=== PATIENT | male | born 1985 | race Caucasian/White ===

== ENCOUNTER 2016-12-07 16:58 | Emergency (ER) | payer MEDICAID, OTHER ==
[~2016-12-07 16:58] MED LIST: CYCL-36 PO; DICL50 PO; HYDR-3533 PO
[2016-12-07 17:16] VITALS: BP 174/110; PULSE 91; RESP 18; TEMP 98.1; O2SAT 100
--- NOTE | 2016-12-07 17:41 | PD ---
HPI Chief Complaint: OD/ Ingestion Time Seen by Provider: 17:23 Travel History International Travel<30 days: No Contact w/Intl Traveler<30days: No Traveled to known affect area: No History of Present Illness HPI This patient snorted a combination of cocaine and heroin. He then drowsy and slumped over face down on the bed. His daughter found him like that and called 911. Paramedics gave him Narcan and brought him in. At this time he complains of some drowsiness but symptoms severity is mild. He denies suicidal ideation or intentional overdose. Symptoms are improved with Narcan. Duration 1 hour. No injury. PFSH Past Medical History Arthritis: Yes (OSTEO IN HANDS) Bipolar Disorder: Yes Anxiety: Yes Depression: Yes Diabetes: No Diminished Hearing: No Gout: Yes (FLARE UPS Q 3-6 MONTHS) Hypertension: Yes Immune Disorder: No Musculoskeletal: Yes (PT HAS GOUT) Neurologic: No Psychiatric: Yes (CURRENTLY SEES DR MALLORY BUT DOES NOT KNOW DIAGNOSIS) Reproductive: No Respiratory: No ?: Not Past Surgical History Other Surgery: Yes (HERNIA WHEN 2 YO) Social History Alcohol Use: Yes (OCCASIONALLY, ONCE PER MONTH) Tobacco Use: Yes (1/2 - 1 PPD) Substance Use: Yes (MARIJUANA) Allergies-Medications (Allergen,Severity, Reaction): Coded Allergies: Gabapentin (Unverified Allergy, Severe, 12/07/16) Reported Meds & Prescriptions Reported Meds & Active Scripts Active Review of Systems General / Constitutional: No: Fever Eyes: No: Visual changes HENT: No: Headaches Cardiovascular: No: Chest Pain or Discomfort Respiratory: No: Shortness of Breath Gastrointestinal: No: Abdominal Pain Genitourinary: No: Dysuria Musculoskeletal: No: Pain Skin: No Rash Neurologic: Positive: Change in Mentation, No: Weakness Psychiatric: Positive: Substance Abuse, No: Depression Endocrine: No: Polydipsia Hematologic/Lymphatic: No: Easy Bruising Physical Exam Narrative GENERAL: Well-nourished, well-developed patient in no apparent distress. SKIN: Focused skin assessment reveals no rash and nodules. Skin is Warm and dry. HEAD: Atraumatic. Normocephalic. EYES: Pupils equal and round. No scleral icterus. No injection or drainage. ENT: No nasal bleeding or discharge. Mucous membranes pink and moist. NECK: Trachea midline. No JVD. CARDIOVASCULAR: Regular rate and rhythm. No murmur appreciated. RESPIRATORY: No accessory muscle use. Clear to auscultation. Breath sounds equal bilaterally. GASTROINTESTINAL: Abdomen soft, non-tender, nondistended. Hepatic and splenic margins not palpable. MUSCULOSKELETAL: No obvious deformities. No clubbing. No cyanosis. No edema. NEUROLOGICAL: Awake and alert. No obvious cranial nerve deficits. Motor grossly within normal limits. Normal speech. PSYCHIATRIC: Appropriate mood and affect; insight and judgment poor. Data Data Last Documented VS Vital Signs Date Time Temp Pulse Resp B/P Pulse Ox O2 Delivery O2 Flow Rate FiO2 12/07/16 17:45 92 16 98 Room Air 12/07/16 17:16 98.1 174/110 Orders Iv Access Insert/Monitor (12/07/16 17:34) Complete Blood Count With Diff (12/07/16 17:34) Basic Metabolic Panel (Bmp) (12/07/16 17:34) Alcohol (Ethanol) (12/07/16 17:34) Electrocardiogram (12/07/16 ) Store Stock Associate / Telemetry [email or web address] (12/07/16 17:34) Labs Laboratory Tests Test 12/07/16 17:50 White Blood Count 13.3 TH/MM3 Red Blood Count 5.20 MIL/MM3 Hemoglobin 14.2 GM/DL Hematocrit 44.6 % Mean Corpuscular Volume 85.8 FL Mean Corpuscular Hemoglobin 27.4 PG Mean Corpuscular Hemoglobin 31.9 % Concent Red Cell Distribution Width 14.4 % Platelet Count 240 TH/MM3 Mean Platelet Volume 9.2 FL Neutrophils (%) (Auto) 81.0 % Lymphocytes (%) (Auto) 14.7 % Monocytes (%) (Auto) 2.8 % Eosinophils (%) (Auto) 0.9 % Basophils (%) (Auto) 0.6 % Neutrophils # (Auto) 10.8 TH/MM3 Lymphocytes # (Auto) 2.0 TH/MM3 Monocytes # (Auto) 0.4 TH/MM3 Eosinophils # (Auto) 0.1 TH/MM3 Basophils # (Auto) 0.1 TH/MM3 CBC Comment DIFF FINAL Differential Comment Sodium Level 138 MEQ/L Potassium Level 4.6 MEQ/L Chloride Level 101 MEQ/L Carbon Dioxide Level 25.9 MEQ/L Anion Gap 11 MEQ/L Blood Urea Nitrogen 14 MG/DL Creatinine 1.67 MG/DL Estimat Glomerular Filtration 48 ML/MIN Rate Random Glucose 294 MG/DL Calcium Level 7.9 MG/DL Ethyl Alcohol Level LESS THAN 3 MG/DL MDM Medical Decision Making Medical Screen Exam Complete: Yes Emergency Medical Condition: Yes Medical Record Reviewed: Yes Differential Diagnosis Overdose, PSA, intoxication Narrative Course I have reviewed the patient's electronic medical record. Has been here before for bipolar disorder IV placed I reviewed his EKG which shows sinus rhythm and no ST elevation Extended cardiac monitoring reveals sinus rhythm without ectopy CBC is normal Metabolic profile is normal Alcohol level is negative I will observe the patient for a while and he is asymptomatic now is awake and alert and wants to go home. Diagnosis Primary Impression: Accidental drug overdose Qualified Code: T50.901A - Accidental drug overdose, initial encounter Additional Instructions: The patient was advised to follow up with their physician and return if they worsen. Med/Other Pt SpecificInfo: Other Disposition: 01 DISCHARGE HOME Condition: Stable Russ Eldridge MD Dec 07, 2016 17:41
[2016-12-07 18:29] LABS: AUTOMATED NEUTROPHIL # 10.8 TH/MM3 (1.8-7.7); BASOPHIL # 0.1 TH/MM3 (0-0.2); BASOPHIL % 0.6 % (0.0-2.0); EOSINOPHIL # 0.1 TH/MM3 (0-0.4); EOSINOPHIL % 0.9 % (0.0-4.0); HEMATOCRIT 44.6 % (39.0-51.0); HEMO FLAGS DIFF FINAL; LYMPH % 14.7 % (9.0-44.0); MEAN CELL VOLUME 85.8 FL (80.0-100.0); MEAN CORPUSCULAR HEMOGLOBIN 27.4 PG (27.0-34.0); MEAN CORPUSCULAR HGB CONC 31.9 % (32.0-36.0); MONO % 2.8 % (0.0-8.0); PLATELET COUNT 240 TH/MM3 (150-450); RED CELL DISTRIBUTION WIDTH 14.4 % (11.6-17.2); WHITE BLOOD COUNT 13.3 TH/MM3 (4.0-11.0)
[2016-12-07 18:52] LABS: ANION GAP 11 MEQ/L (5-15); BICARBONATE 25.9 MEQ/L (21.0-32.0); BLOOD UREA NITROGEN 14 MG/DL (7-18); CHLORIDE 101 MEQ/L (98-107); GLOMERULAR FILTRATION RATE 48 ML/MIN (>89); SODIUM (NA) 138 MEQ/L (136-145)
[2016-12-07 18:55] LABS: POTASSIUM 4.6 MEQ/L (3.5-5.1)
--- NOTE | 2016-12-08 12:09 | EKG ---
Date Performed: 12/07/2016 Time Performed: 17:31:33 PTAGE: 30 years EKG: Sinus rhythm LEFT VENTRICULAR HYPERTROPHY AND ST-T CHANGE ABNORMAL ECG NO PREVIOUS TRACING DOCTOR: Westley Beltrán Interpretating Date/Time 12/08/2016 12:07:53
== END 2016-12-07 19:16 | disposition home or self-care (01) ==
LOC: NEPE 16:58
DX: T50.901A Poisoning by unspecified drugs, medicaments and biological substances, accidental (unintentional), initial encounter (principal); F17.210 Nicotine dependence, cigarettes, uncomplicated; F31.9 Bipolar disorder, unspecified; M10.9 Gout, unspecified; I10 Essential (primary) hypertension; I51.7 Cardiomegaly; R94.31 Abnormal electrocardiogram [ECG] [EKG]
CPT/HCPCS: 80048; 80307; 85025; 93005; 99285

== ENCOUNTER 2017-09-02 19:54 | Emergency (ER) | payer MEDICAID, OTHER ==
[2017-09-02] VITALS (7 sets, daily range): BP systolic 179–255; BP diastolic 100–136; PULSE 79–104; RESP 16–19; TEMP 98.5; O2SAT 97–99
[~2017-09-02] VITALS: Ht 185.4 cm; Wt 150.0 kg
[2017-09-02] MEDS ORDERED: MORPHINE SULFATE 4 MG/ML INJ IV PUSH ONE (20:15)
[2017-09-02] MEDS ORDERED: SODIUM CHLORIDE 0.9% FLUSH 10 ML FLUSH IV FLUSH PRN (20:15)
[2017-09-02] MEDS ORDERED: LABETALOL HCL 100 MG/20 ML VIAL IV PUSH ONE (21:00)
--- NOTE | 2017-09-02 21:03 | PD ---
HPI Chief Complaint: Abdominal Pain Time Seen by Provider: 20:01 Travel History International Travel<30 days: No Contact w/Intl Traveler<30days: No Traveled to known affect area: No History of Present Illness HPI 31-year-old male presents to the ED for evaluation of 3 day history of lower abdominal pain. Waxing and waning in quality. Minimally 3, maximally 5 out of 10. Initially in the LLQ, now in the RLQ. The patient denies fever, chills, nausea, vomiting, decreased appetite, changes in bowel habits. He states that his urine "smells funny." He denies dysuria, hematuria, penile discharge. He also complains of intermittent dizziness for the last few days. He is unable to associate this dizziness with any particular action. States that it lasts less than a minute and resolved spontaneously. He denies headache, vision changes, chest pain, palpitations, shortness of breath, difficulties with speech. He is a 20 year pack-a-day smoker. He has a formal diagnosis of HTN, noncompliant with medications. He endorses "a few puffs" of marijuana before presentation today. He denies other illicit drugs. He denies history of IV drug abuse. PFSH Past Medical History Arthritis: Yes (OSTEO IN HANDS) Bipolar Disorder: Yes Anxiety: Yes Depression: Yes Diabetes: No Diminished Hearing: No Gastrointestinal Disorders: No Gout: Yes (FLARE UPS Q 3-6 MONTHS) Hypertension: Yes Immune Disorder: No Musculoskeletal: Yes (PT HAS GOUT) Neurologic: No Psychiatric: Yes (CURRENTLY SEES DR MALLORY BUT DOES NOT KNOW DIAGNOSIS) Reproductive: No Respiratory: No Past Surgical History Other Surgery: Yes (HERNIA WHEN 2 YO) Social History Alcohol Use: Yes (OCCASIONALLY, ONCE PER MONTH) Tobacco Use: Yes (1/2 - 1 PPD) Substance Use: Yes (MARIJUANA, heroin, narcotic abuse) Allergies-Medications (Allergen,Severity, Reaction): Coded Allergies: gabapentin (Unverified Allergy, Severe, 09/02/17) Reported Meds & Prescriptions Reported Meds & Active Scripts Active No Active Prescriptions or Reported Medications Review of Systems Except as stated in HPI: all other systems reviewed are Neg Physical Exam Narrative GENERAL: Well-nourished, well-developed obese white male in no acute distress. SKIN: Focused skin assessment warm/dry. Multiple tattoos noted. HEAD: Normocephalic. EYES: No scleral icterus. No injection or drainage. The ER LA. EOMI. NECK: Supple, trachea midline. No JVD or lymphadenopathy. CARDIOVASCULAR: Regular rate and rhythm without murmurs, gallops, or rubs. RESPIRATORY: Breath sounds clear and equal bilaterally. No accessory muscle use. GASTROINTESTINAL: Abdomen soft, protuberant, nondistended. No focal tenderness in the lower quadrants. MUSCULOSKELETAL: No cyanosis, or edema. NEUROLOGICAL: Awake and alert. Cranial nerves II through XII intact. Motor and sensory grossly within normal limits. Five out of 5 muscle strength in all muscle groups. Normal speech. BACK: Nontender without obvious deformity. No CVA tenderness. Data Data Last Documented VS Vital Signs Date Time Temp Pulse Resp B/P (MAP) Pulse Ox O2 Delivery O2 Flow Rate FiO2 09/02/17 21:50 85 19 182/109 (133) 99 Room Air 09/02/17 19:56 98.5 Orders Orders Complete Blood Count With Diff (09/02/17 20:07) Comprehensive Metabolic Panel (09/02/17 20:07) Prothrombin Time / Inr (Pt) (09/02/17 20:07) Act Partial Throm Time (Ptt) (09/02/17 20:07) Urinalysis - C+S If Indicated (09/02/17 20:07) Ct Abd/Pel W Iv Contrast(Rout) (09/02/17 20:07) Iv Access Insert/Monitor (09/02/17 20:07) Ecg Monitoring (09/02/17 20:07) Oximetry (09/02/17 20:07) Morphine Inj (Morphine Inj) (09/02/17 20:15) Sodium Chloride 0.9% Flush (Ns Flush) (09/02/17 20:15) Ct Brain W/O Iv Contrast(Rout) (09/02/17 ) Labetalol Inj (Trandate Inj) (09/02/17 21:00) Drug Screen, Random Urine (09/02/17 20:53) Iohexol 350 Inj (Omnipaque 350 Inj) (09/02/17 22:31) Ed Discharge Order (09/02/17 22:44) Labs Laboratory Tests Test 09/02/17 20:15 09/02/17 21:00 2/25/18 21:05 Blood Urea Nitrogen 14 MG/DL Creatinine 0.97 MG/DL Random Glucose 159 MG/DL Total Protein 6.9 GM/DL Albumin 3.3 GM/DL Calcium Level 8.6 MG/DL Alkaline Phosphatase 82 U/L Aspartate Amino Transf (AST/SGOT) 21 U/L Alanine Aminotransferase (ALT/SGPT) 62 U/L Total Bilirubin 0.3 MG/DL Sodium Level 141 MEQ/L Potassium Level 3.5 MEQ/L Chloride Level 105 MEQ/L Carbon Dioxide Level 31.2 MEQ/L Anion Gap 5 MEQ/L Estimat Glomerular Filtration Rate 89 ML/MIN Urine Color YELLOW Urine Turbidity CLEAR Urine pH 5.5 Urine Specific [place] 1.021 Urine Protein 30 mg/dL Urine Glucose (UA) NEG mg/dL Urine Ketones NEG mg/dL Urine Occult Blood SMALL Urine Nitrite NEG Urine Bilirubin NEG Urine Urobilinogen LESS THAN 2.0 MG/DL Urine Leukocyte Esterase NEG Urine RBC 2 /hpf Urine WBC 1 /hpf Urine Squamous Epithelial Cells <1 /hpf Urine Mucus FEW /lpf Microscopic Urinalysis Comment CULT NOT INDICATED Urine Opiates Screen POS Urine Barbiturates Screen NEG Urine Amphetamines Screen POS Urine Benzodiazepines Screen NEG Urine Cocaine Screen POS Urine Cannabinoids Screen POS White Blood Count 13.4 TH/MM3 Red Blood Count 4.80 MIL/MM3 Hemoglobin 13.5 GM/DL Hematocrit 40.1 % Mean Corpuscular Volume 83.5 FL Mean Corpuscular Hemoglobin 28.1 PG Mean Corpuscular Hemoglobin Concent 33.6 % Red Cell Distribution Width 13.8 % Platelet Count 232 TH/MM3 Mean Platelet Volume 8.9 FL Neutrophils (%) (Auto) 61.5 % Lymphocytes (%) (Auto) 28.3 % Monocytes (%) (Auto) 5.8 % Eosinophils (%) (Auto) 3.7 % Basophils (%) (Auto) 0.7 % Neutrophils # (Auto) 8.2 TH/MM3 Lymphocytes # (Auto) 3.8 TH/MM3 Monocytes # (Auto) 0.8 TH/MM3 Eosinophils # (Auto) 0.5 TH/MM3 Basophils # (Auto) 0.1 TH/MM3 CBC Comment DIFF FINAL Differential Comment Prothrombin Time 10.0 SEC Prothromb Time International Ratio 1.0 RATIO Activated Partial Thromboplast Time 26.9 SEC MDM Medical Decision Making Medical Screen Exam Complete: Yes Emergency Medical Condition: Yes Differential Diagnosis Hypertensive urgency versus early appendicitis versus nephroureterolithiasis versus OLMAN versus noncompliance versus less likely ICH versus other Narrative Course 31-year-old male with PMH of HTN, noncompliant with medications presents to the ED for evaluation of 3 day history of bilateral lower quadrant abdominal pain. Also complains of intermittent dizziness. Temp 98.5. Pulse 104, BP 255/135 on presentation. On exam this is an obese white male in no acute distress. No focal neuro deficits. No focal tenderness in the abdomen. IV was established. Patient was administered 4 mg of morphine IV. On recheck BP 220/124. He was administered 10 mg of labetalol IV. CT brain: No acute findings per radiology read. CT abdomen and pelvis: PENDING at time of AMA Drug screen positive for opiates, cocaine, cannabinoids, amphetamines. UA: No culture indicated. 09/02/17 20:15 Total Protein 6.9, Albumin 3.3 L, Calcium Level 8.6, Alkaline Phosphatase 82, Aspartate Amino Transf (AST/SGOT) 21, Alanine Aminotransferase (ALT/SGPT) 62, Total Bilirubin 0.3 09/02/17 21:05 Patient's blood pressure trending downwards. After undergoing CT the patient states that he has a family emergency and has to leave. I reviewed the results of the lab work that were available. I recommended that the patient stay to complete his evaluation. I explained the risks of leaving, up to and including . The patient acknowledged understanding of these risks, but still chose to leave AMA. Diagnosis Primary Impression: Polysubstance abuse Additional Impressions: Hypertension Qualified Codes: I10 - Essential (primary) hypertension Noncompliance Abdominal pain Qualified Codes: R10.9 - Unspecified abdominal pain Dizziness Left against medical advice Referrals: [facility] Additional Instructions: Seek outpatient treatment for polysubstance abuse and SMA. Follow-up with the [facility] for to establish primary care and get treatment for your hypertension. Return to the ED for worsening symptoms or any urgent or emergent medical condition. Scripts No Active Prescriptions or Reported Meds Disposition: 07 AGAINST MEDICAL ADVICE Condition: Stable Mariposa Lerma Sep 02, 2017 21:03
[2017-09-02 21:35] LABS: BILIRUBIN, URINE NEG (NEG); BLOOD, URINE SMALL (NEG); GLUCOSE,URINE NEG (NEG); KETONE, URINE NEG (NEG); MUCUS URINE FEW /lpf (OCC); NITRITE,URINE NEG (NEG); PH, URINE 5.5 (5.0-8.5); SQUAMOUS EPITHELIAL CELL URINE <1 /hpf (0-5); URINE COLOR YELLOW (YELLW/STRAW); URINE LEUKOCYTE ESTERASE NEG (NEG)
[2017-09-02 21:41] LABS: AUTOMATED NEUTROPHIL # 8.2 TH/MM3 (1.8-7.7); BASOPHIL # 0.1 TH/MM3 (0-0.2); BASOPHIL % 0.7 % (0.0-2.0); EOSINOPHIL # 0.5 TH/MM3 (0-0.4); EOSINOPHIL % 3.7 % (0.0-4.0); HEMATOCRIT 40.1 % (39.0-51.0); HEMOGLOBIN 13.5 GM/DL (13.0-17.0); LYMPH % 28.3 % (9.0-44.0); LYMPHOCYTE # 3.8 TH/MM3 (1.0-4.8); MEAN CELL VOLUME 83.5 FL (80.0-100.0); MEAN CORPUSCULAR HEMOGLOBIN 28.1 PG (27.0-34.0); MEAN CORPUSCULAR HGB CONC 33.6 % (32.0-36.0); MEAN PLATELET VOLUME 8.9 FL (7.0-11.0); MONO % 5.8 % (0.0-8.0); MONOCYTE # 0.8 TH/MM3 (0-0.9); NEUT % 61.5 % (16.0-70.0); PLATELET COUNT 232 TH/MM3 (150-450); RED CELL DISTRIBUTION WIDTH 13.8 % (11.6-17.2); WHITE BLOOD COUNT 13.4 TH/MM3 (4.0-11.0)
[2017-09-02 22:03] LABS: ALBUMIN 3.3 GM/DL (3.4-5.0); AST (GOT) 21 U/L (15-37); BICARBONATE 31.2 MEQ/L (21.0-32.0); BLOOD UREA NITROGEN 14 MG/DL (7-18); CALCIUM 8.6 MG/DL (8.5-10.1); CHLORIDE 105 MEQ/L (98-107); CREATININE 0.97 MG/DL (0.60-1.30); GLOMERULAR FILTRATION RATE 89 ML/MIN (>89); GLUCOSE,RANDOM 159 MG/DL (74-106); SODIUM (NA) 141 MEQ/L (136-145)
[2017-09-02 22:04] LABS: ALT (GPT) 62 U/L (12-78)
[2017-09-02 22:06] LABS: ALKALINE PHOSPHATASE 82 U/L (45-117); TOTAL BILIRUBIN ADULT 0.3 MG/DL (0.2-1.0); TOTAL PROTEIN 6.9 GM/DL (6.4-8.2)
[2017-09-02] MEDS ORDERED: IOHEXOL 350 MG/ML 10 ML VIAL (for RAD DIAG) IVCONTRAST ONE (22:31)
--- NOTE | 2017-09-02 22:35 | RADRPT ---
EXAM DATE/TIME: 09/02/2017 22:22 [facility] COMPARISON: No previous studies available for comparison. INDICATIONS : Headache. RADIATION DOSE: 66.34 CTDIvol (mGy) ; Tabletop CT Head MEDICAL HISTORY : Polysubstance abuse SURGICAL HISTORY : None. ENCOUNTER: Initial ACUITY: 1 day PAIN SCALE: 3/10 LOCATION: cranial TECHNIQUE: Multiple contiguous axial images were obtained of the head. Using automated exposure control and adj ustment of the mA and/or kV according to patient size, radiation dose was kept as low as reasonably a chievable to obtain optimal diagnostic quality images. DICOM format image data is available electro nically for review and comparison. FINDINGS: CEREBRUM: The ventricles are normal for age. No evidence of midline shift, mass lesion, hemorrhage or acute in farction. No extra-axial fluid collections are seen. POSTERIOR FOSSA: The cerebellum and brainstem are intact. The 4th ventricle is midline. The cerebellopontine angle i s unremarkable. EXTRACRANIAL: The visualized portion of the orbits is intact. SKULL: The calvaria is intact. No evidence of skull fracture. CONCLUSION: Normal examination. Del London MD on September 02, 2017 at 22:32 Board Certified Radiologist. This report was verified electronically.
--- NOTE | 2017-09-02 22:41 | RADRPT ---
EXAM DATE/TIME: 09/02/2017 22:24 [facility] COMPARISON: No previous studies available for comparison. INDICATIONS : Left lower quadrant pain starting yesterday. IV CONTRAST: 92 cc Omnipaque 350 (iohexol) IV ORAL CONTRAST: No oral contrast ingested. RADIATION DOSE: 33.14 CTDIvol (mGy) ; Patient body habitus MEDICAL HISTORY : Polysubstance abuse SURGICAL HISTORY : None. ENCOUNTER: Initial ACUITY: 1 day PAIN SCALE: 6/10 LOCATION: Left lower quadrant abdomen TECHNIQUE: Volumetric scanning of the abdomen and pelvis was performed. Using automated exposure control and ad justment of the mA and/or kV according to patient size, radiation dose was kept as low as reasonably achievable to obtain optimal diagnostic quality images. DICOM format image data is available electro nically for review and comparison. FINDINGS: Lung bases are clear. Mild fatty liver the spleen, adrenals and pancreas unremarkable. Numerous nonob structing bilateral renal calculi ranging in size from 1-2 mm. The appendix is normal. There is mild constipation. No free air or free fluid. No bowel obstruction. CONCLUSION: 1. No acute findings. Mild constipation. Numerous non-obstructing renal calculi. Mild fatty liver. Del London MD on September 02, 2017 at 22:36 Board Certified Radiologist. This report was verified electronically.
== END 2017-09-02 23:02 | disposition left against medical advice (07) ==
LOC: NEPC 19:54
DX: F19.10 Other psychoactive substance abuse, uncomplicated (principal); I10 Essential (primary) hypertension; Z91.19 Patient's noncompliance with other medical treatment and regimen; R10.9 Unspecified abdominal pain; R42 Dizziness and giddiness; F31.9 Bipolar disorder, unspecified; F41.9 Anxiety disorder, unspecified; M19.90 Unspecified osteoarthritis, unspecified site; F17.200 Nicotine dependence, unspecified, uncomplicated
CPT/HCPCS: 70450; 74177; 80053; 80307; 81001; 85025; 85610; 85730; 96374; 96375; 99284; J2270; Q9967